=== PATIENT | male | born 1985 | race Caucasian/White ===

== ENCOUNTER 2018-12-30 14:03 | Emergency (ER) | payer OTHER ==
[2018-12-30 14:16] VITALS: BP 142/85
--- NOTE | 2018-12-30 14:34 | ER Document Report ---
ED Medical Screen (RME) - General Chief Complaint: Urinary Problem Stated Complaint: URINARY PAIN Time Seen by Provider: 12/30/18 14:32 Mode of Arrival: Ambulatory Information source: Patient Notes: 33-year-old male presented to ED for complaint of "brown urine. He states he has been having working out very heavy for the last 2 days. He states he thought he was drinking enough fluid but he is urinated twice today and both times it was brown. He states he is not having any muscle cramping at this time. He states he does have a history of anxiety depression PTSD and bipolar. He denies smoking drinking or using any kind of drugs. I have ordered urine blood work and fluids and he will be seen by another provider. I have greeted and performed a rapid initial assessment of this patient. A comprehensive ED assessment and evaluation of the patient, analysis of test results and completion of medical decision making process will be conducted by an additional ED providers. TRAVEL OUTSIDE OF THE [place] IN LAST 30 DAYS: No - Related Data Allergies/Adverse Reactions: No Known Allergies Allergy (Unverified 12/30/18 14:05) Physical Exam - Vital signs Vitals: Temp Pulse Resp BP Pulse Ox 98.8 F 80 14 142/85 H 97 12/30/18 14:15 12/30/18 14:15 12/30/18 14:15 12/30/18 14:15 12/30/18 14:15 Course - Vital Signs Vital signs: Temp Pulse Resp BP Pulse Ox 98.8 F 80 14 142/85 H 97 12/30/18 14:15 12/30/18 14:15 12/30/18 14:15 12/30/18 14:15 12/30/18 14:15
[2018-12-30 14:57] LABS: APPEARANCE,URINE SLIGHTLY-CLOUDY; BILIRUBIN,URINE NEGATIVE (NEGATIVE); GLUCOSE, URINE NEGATIVE (NEGATIVE); KETONES,URINE NEGATIVE (NEGATIVE); LEUKOCYTE ESTERASE,URINE NEGATIVE (NEGATIVE); NITRITE,URINE NEGATIVE (NEGATIVE); PROTEIN,URINE 100 mg/dL (NEGATIVE); URINE SPECIFIC GRAVITY 1.008; UROBILINOGEN,URINE NEGATIVE mg/dL (<2.0)
[2018-12-30 14:59] LABS: COLOR,URINE AMBER
[2018-12-30] MEDS: RINGERS SOLUTION,LACTATED 1,000 ML IV PRN ×2 (15:00→16:24)
--- NOTE | 2018-12-30 15:05 | ER Document Report ---
ED General - General Chief Complaint: Urinary Problem Stated Complaint: URINARY PAIN Time Seen by Provider: 12/30/18 14:32 Mode of Arrival: Ambulatory Notes: 33-year-old male presents the emergency department with chief complaint of brown urine this morning. Patient states that he recently started working out again a nd has had significant muscle pain over the last several days. 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 Patient denies any flank pain, denies any muscle cramping, states that his urine is starting to become "a little more transparent". When I asked him dark brown urine was he said it was the consistency of tea. Patient denies any fevers, chills or malaise, nausea or vomiting, abdominal pain, dysuria, and anuria, no other problems. TRAVEL OUTSIDE OF THE [place] IN LAST 30 DAYS: No - Related Data Allergies/Adverse Reactions: No Known Allergies Allergy (Unverified 12/30/18 14:05) Past Medical History - General Information source: Patient - Social History Smoking Status: Unknown if Ever Smoked Family History: None Review of Systems - Review of Systems Constitutional: See HPI EENT: No symptoms reported Cardiovascular: See HPI Respiratory: See HPI Gastrointestinal: See HPI Genitourinary: See HPI Male Genitourinary: No symptoms reported Musculoskeletal: See HPI Skin: No symptoms reported Hematologic/Lymphatic: No symptoms reported Neurological/Psychological: No symptoms reported Physical Exam - Vital signs Vitals: Temp Pulse Resp BP Pulse Ox 98.8 F 80 14 142/85 H 97 12/30/18 14:15 12/30/18 14:15 12/30/18 14:15 12/30/18 14:15 12/30/18 14:15 - Notes Notes: PHYSICAL EXAMINATION: Reviewed vital signs and charting by RN GENERAL: Alert, interacts well. No acute distress. HEAD: Normocephalic, atraumatic. EYES: Pupils equal and round. Extraocular movements intact. ENT: Oral mucosa moist, tongue midline. NECK: Full range of motion. Trachea midline. LUNGS: Clear to auscultation bilaterally, no wheezes, rales, or rhonchi. No respiratory distress. HEART: Regular rate and rhythm. No murmur ABDOMEN: soft, non-tender. No distention. Bowel sounds present EXTREMITIES: Moves all 4 extremities spontaneously. No edema, No cyanosis. PSYCH: Normal affect, normal mood. SKIN: Warm, dry, normal turgor. No rashes or lesions noted. Course - Re-evaluation Re-evalutation: 12/30/18 15:16 Overall well-appearing, nursing notes reviewed, vital signs within normal limits. All labs work-up ordered in triage and pending. 12/30/18 16:56 Lab work resulted and patient's CK 46,098, no evidence of ALEXANDRE at this time. Elidia rubio has received Ringer's lactate 2 L. I called the hospitalist, Wilmer Rojas, DANNY, who accepted patient for full admission. - Vital Signs Vital signs: Temp Pulse Resp BP Pulse Ox 98.8 F 80 14 142/85 H 97 12/30/18 14:15 12/30/18 14:15 12/30/18 14:15 12/30/18 14:15 12/30/18 14:15 - Laboratory Result Diagrams: 12/30/18 14:55 12/30/18 14:55 Laboratory results interpreted by me: 12/30/18 12/30/18 12/30/18 14:40 14:55 14:55 WBC 10.9 H MCV 99 H MCH 35.3 H Sodium 136.8 L AST 809 H Creatine Kinase 36355 H Urine Protein 100 H Urine Blood LARGE H Discharge - Discharge Clinical Impression: Rhabdomyolysis Qualifiers: Rhabdomyolysis type: non-traumatic Qualified Code(s): M62.82 - Rhabdomyolysis Condition: Stable Disposition: AGAINST MEDICAL ADVICE Admitting Provider: Dorian (Hospitalist) Unit Admitted: Medical Floor
[2018-12-30 15:12] LABS: ABSOLUTE BASOPHILS # (AUTO) 0.1 10^3/uL (0.0-0.2); ABSOLUTE LYMPHOCYTES (AUTO) 1.8 10^3/uL (0.5-4.7); BASOPHILS % (AUTO) 0.6 % (0-2); EOSINOPHILS % (AUTO) 0.3 % (0-6); HEMATOCRIT 44.2 % (37.9-51.0); HEMOGLOBIN 15.8 g/dL (13.5-17.0); LYMPHOCYTES % (AUTO) 16.8 % (13-45); MEAN CORPUSCULAR HEMOGLOBIN 35.3 pg (27.0-33.4); MEAN CORPUSCULAR HGB CONC 35.7 g/dL (32.0-36.0); MEAN CORPUSCULAR VOLUME 99 fl (80-97); MONOCYTES % (AUTO) 9.3 % (3-13); PLATELET COUNT 204 10^3/uL (150-450); RED BLOOD COUNT 4.46 10^6/uL (4.35-5.55); RED CELL DISTRIBUTION WIDTH 12.8 % (11.5-14.0); TOTAL CELLS COUNTED % (AUTO) 100 %; WHITE BLOOD COUNT 10.9 10^3/uL (4.0-10.5)
[2018-12-30 15:34] LABS: ALBUMIN 4.7 g/dL (3.5-5.0); ALKALINE PHOSPHATASE 68 U/L (38-126); ANION GAP 8 (5-19); BILIRUBIN,DIRECT 0.3 mg/dL (0.0-0.4); BILIRUBIN,TOTAL 0.4 mg/dL (0.2-1.3); BLOOD UREA NITROGEN 11 mg/dL (7-20); CARBON DIOXIDE 30 mmol/L (22-30); CHLORIDE 99 mmol/L (98-107); GLUCOSE 84 mg/dL (75-110); POTASSIUM 4.4 mmol/L (3.6-5.0); TOTAL PROTEIN 7.4 g/dL (6.3-8.2)
[2018-12-30 15:52] LABS: ASPARTATE AMINO TRANSFERASE 809 U/L (17-59)
[2018-12-30 16:12] LABS: CREATINE KINASE 46098 U/L (55-170)
[2018-12-30] MEDS ORDERED: OXYCODONE-ACETAMINOPHEN 5-325 MG TABLET PO PRN (17:02)
[2018-12-30] MEDS ORDERED: NORMAL SALINE 1000 ML 1,000 ML IV PRN (17:02)
--- NOTE | 2018-12-30 17:10 | Progress Note Acknowledgement ---
Progress Note Acknowledgement Progess Note Acknowledgement: I, the undersigned member of the medical staff with appropriate privileges and with supervisory authority over [Simone Rojas], a dependent practice allied health professional, acknowledge that I have reviewed the progress notes entered on this patient, and in my professional judgment believe that the assessment made and/or any care evidenced was appropriate
--- NOTE | 2018-12-30 17:18 | PDOC H&P ---
History of Present Illness Admission Date/PCP: 12/30/2018 No primary care Patient complains of: Muscle aches History of Present Illness: BROOKS ROMERO is a 33 year old male who presents after "excessive exercise" with rhabdomyolysis. Patient has a elevated CK above 40,000 at this time. Elidia rubio does not have acute renal failure although he does have elevated LFTs. Patient had no treatment prior to arrival no true aggravating factors. Past Medical History Cardiac Medical History: Reports: Hypertension Psychiatric Medical History: Reports: Depression Past Surgical History Past Surgical History: Reports: None Social History Information Source: Patient Lives with: Family Smoking Status: Unknown if Ever Smoked Frequency of Alcohol Use: None Hx Recreational Drug Use: No Drugs: None Hx Prescription Drug Abuse: No - Advance Directive Resuscitation Status: Full Code Family History Family History: Hypertension Parental Family History Reviewed: Yes Children Family History Reviewed: Yes Sibling(s) Family History Reviewed.: Yes Medication/Allergy Allergies/Adverse Reactions: No Known Allergies Allergy (Unverified 12/30/18 14:05) Review of Systems Constitutional: PRESENT: other - Muscle aches. ABSENT: chills, fever(s), headache(s), weight gain, weight loss Eyes: ABSENT: visual disturbances Ears: ABSENT: hearing changes Cardiovascular: ABSENT: chest pain, dyspnea on exertion, edema, orthropnea, palpitations Respiratory: ABSENT: cough, hemoptysis Gastrointestinal: ABSENT: abdominal pain, constipation, diarrhea, hematemesis, hematochezia, nausea, vomiting Genitourinary: ABSENT: dysuria, hematuria Musculoskeletal: ABSENT: joint swelling Integumentary: ABSENT: rash, wounds Neurological: ABSENT: abnormal gait, abnormal speech, confusion, dizziness, focal weakness, syncope Psychiatric: ABSENT: anxiety, depression, homidical ideation, suicidal ideation Endocrine: ABSENT: cold intolerance, heat intolerance, polydipsia, polyuria Hematologic/Lymphatic: ABSENT: easy bleeding, easy bruising Physical Exam Vital Signs: Temp Pulse Resp BP Pulse Ox 98.8 F 80 14 142/85 H 97 12/30/18 14:15 12/30/18 14:15 12/30/18 14:15 12/30/18 14:15 12/30/18 14:15 Intake & Output 12/29/18 12/30/18 12/31/18 06:59 06:59 06:59 Intake Total 1000 Balance 1000 Weight 80.5 kg General appearance: PRESENT: no acute distress, well-developed, well-nourished Head exam: PRESENT: atraumatic, normocephalic Eye exam: PRESENT: conjunctiva pink, EOMI, PERRLA. ABSENT: scleral icterus Ear exam: PRESENT: normal external ear exam Mouth exam: PRESENT: moist, tongue midline Neck exam: ABSENT: carotid bruit, JVD, lymphadenopathy, thyromegaly Respiratory exam: PRESENT: clear to auscultation juanita. ABSENT: rales, rhonchi, wheezes Cardiovascular exam: PRESENT: RRR. ABSENT: diastolic murmur, rubs, systolic murmur Pulses: PRESENT: normal dorsalis pedis pul Vascular exam: PRESENT: normal capillary refill GI/Abdominal exam: PRESENT: normal bowel sounds, soft. ABSENT: distended, guarding, mass, organolmegaly, rebound, tenderness Rectal exam: PRESENT: deferred Extremities exam: PRESENT: full ROM. ABSENT: calf tenderness, clubbing, pedal edema Neurological exam: PRESENT: alert, awake, oriented to person, oriented to place, oriented to time, oriented to situation, CN II-XII grossly intact. ABSENT: motor sensory deficit Psychiatric exam: PRESENT: appropriate affect, normal mood. ABSENT: homicidal ideation, suicidal ideation Skin exam: PRESENT: dry, intact, warm. ABSENT: cyanosis, rash Results Laboratory Results: 12/30/18 14:55 12/30/18 14:55 12/30/18 12/30/18 12/30/18 14:40 14:55 14:55 WBC 10.9 H RBC 4.46 Hgb 15.8 Hct 44.2 MCV 99 H MCH 35.3 H MCHC 35.7 RDW 12.8 Plt Count 204 Seg Neutrophils % 73.0 Sodium 136.8 L Potassium 4.4 Chloride 99 Carbon Dioxide 30 Anion Gap 8 BUN 11 Creatinine 0.98 Est GFR ( Amer) > 60 Glucose 84 Calcium 10.0 Total Bilirubin 0.4 AST 809 H Alkaline Phosphatase 68 Total Protein 7.4 Albumin 4.7 Lipase 91.6 Urine Color MONICA Urine Appearance SLIGHTLY-CLOUDY Urine pH 6.0 Ur Specific [place] 1.008 Urine Protein 100 H Urine Glucose (UA) NEGATIVE Urine Ketones NEGATIVE Urine Blood LARGE H Urine Nitrite NEGATIVE Ur Leukocyte Esterase NEGATIVE Urine WBC (Auto) 3 Urine RBC (Auto) 1 12/30/18 14:55 Creatine Kinase 40261 H Assessment and Plan - Diagnosis (1) Rhabdomyolysis Qualifiers: Rhabdomyolysis type: non-traumatic Qualified Code(s): M62.82 - Rhabdomyolys is Is this a current diagnosis for this admission?: Yes Plan: 12/30/2018-CK of elevated above 40,000. Creatinine normal. Normal saline 30 mL an hour overnight. Repeat labs in the a.m. (2) Elevated LFTs Is this a current diagnosis for this admission?: Yes Plan: 12/30/2018-hepatitis panel. Repeat LFTs in the a.m. - Time Time Spent with patient: 35 or more minutes
--- NOTE | 2018-12-30 17:20 | Left Against Medical Advice ---
Against Medical Advice Admission Date/Time: 12/30/[id number] Primary Care Provider: Date of Patient Emigration: 12/30/18 - Diagnosis: (1) Rhabdomyolysis Is this a current diagnosis for this admission?: Yes (2) Elevated LFTs Is this a current diagnosis for this admission?: Yes - Summary: Summary: Please see Admission and Progress Notes as well. BROOKS ROMERO is a 33 M, who LEFT AGAINST MEDICAL ADVICE. The Patient was admitted on 12/30/2018 at 1700. Decided at 1720 he wanted to go AGAINST MEDICAL ADVICE. Educated patient that going AGAINST MEDICAL ADVICE could lead up to and including . Patient verbalized understanding but stated he want to go home nonetheless.
== END 2018-12-30 17:22 | disposition left against medical advice (07) ==
LOC: ER 14:03
DX: M62.82 Rhabdomyolysis (principal); R39.89 Other symptoms and signs involving the genitourinary system; Z53.20 Procedure and treatment not carried out because of patient's decision for unspecified reasons
CPT/HCPCS: 99283; 96360; 96361; 36415; 87086; 82550; 83690; 85025; 80053; 81001; J7120

== ENCOUNTER 2019-06-24 12:02 | Day surgery (SDC) | payer OTHER ==
[2019-06-17 10:22] LABS: ANION GAP 7 (5-19); BLOOD UREA NITROGEN 14 mg/dL (7-20); CALCIUM 10.1 mg/dL (8.4-10.2); CARBON DIOXIDE 32 mmol/L (22-30); CHLORIDE 99 mmol/L (98-107); GLUCOSE 90 mg/dL (75-110); POTASSIUM 5.1 mmol/L (3.6-5.0)
[~2019-06-24 12:02] MED LIST: CEFAZOLIN 1 GM/D5W RTU 1 GM/50 ML RTUPB IV PRN; LACTATED RINGERS 1000 ML IV PRN; LIDOCAINE 0.5% INJ-PF (5 MG/ML) 50 ML SDV SUBCUT PRN
[2019-06-24] MEDS ORDERED: LIDOCAINE 2% INJ-PF (20 MG/ML) 10 ML AMPUL ONE (12:05)
[2019-06-24] MEDS ORDERED: MIDAZOLAM 2 MG/2 ML INJ ONE (12:05)
[2019-06-24] MEDS ORDERED: FENTANYL CITRATE INJ/PF 100 MCG/2 ML AMPUL ONE (12:05)
[2019-06-24] MEDS ORDERED: DEXAMETHASONE SOD PHOSPHATE INJ 4 MG/1 ML VIAL ONE (12:06)
[2019-06-24] MEDS ORDERED: ONDANSETRON HCL INJ/PF 4 MG/2 ML SDV ONE (12:06)
[2019-06-24] MEDS ORDERED: PROPOFOL INJ 200 MG/20 ML VIAL IV ONE (12:06)
[2019-06-24] MEDS ORDERED: CEFAZOLIN 1 GM/D5W RTU 1 GM/50 ML RTUPB IV ONE (12:51)
[2019-06-24] MEDS ORDERED: BUPIVACAINE INJ/PF LIPOSOME/PF 266 MG/20 ML SDV ONE (13:06)
[2019-06-24] MEDS ORDERED: MORPHINE SULFATE 10 MG/ML INJ IV PRN (13:08)
[2019-06-24] MEDS ORDERED: DIPHENHYDRAMINE HCL 50 MG/ML VIAL IV PRN (13:08)
[2019-06-24] MEDS ORDERED: MEPERIDINE HCL/PF INJ 25 MG/1 ML DISP.SYRIN IV PRN (13:08)
[2019-06-24] MEDS ORDERED: FENTANYL CITRATE INJ/PF 100 MCG/2 ML AMPUL IV PRN ×3 (13:08)
[2019-06-24] MEDS ORDERED: PROMETHAZINE HCL INJ 25 MG/1 ML VIAL IV PRN ×2 (13:08)
[2019-06-24] MEDS ORDERED: OXYCODONE-ACETAMINOPHEN 5-325 MG TABLET PO PRN ×2 (13:08)
--- NOTE | 2019-06-24 13:59 | Operative Report ---
Nonrecallable Operative Report DATE OF SURGERY: 06/24/19 PREOPERATIVE DIAGNOSIS: Anal fissure POSTOPERATIVE DIAGNOSIS: Anal fissure OPERATION: Exam under anesthesia and lateral internal sphincterotomy SURGEON: DUYEN MACE ANESTHESIA: GA TISSUE REMOVED OR ALTERED: None COMPLICATIONS: None ESTIMATED BLOOD LOSS: 10 cc INTRAOPERATIVE FINDINGS: Posterior anal fissure PROCEDURE: Procedure note patient was brought to the operating when awake alert in stable condition placed in the operative table supine position induced under anesthesia intubated. He was then placed up in a high lithotomy position. After appropriate timeout site verification the anus was prepped and draped in usual sterile fashion. Examination with the anoscope revealed a posterior anal fissure with the external sphincter muscles visible at the base of the fissure. 360 degree circumferential examination of the rectum revealed no other abnormalities there was no significant hemorrhoidal's that were identified. Therefore because of the persistent anal fissure we have elected to perform a lateral internal sphincterotomy. Using the Bovie cautery at the 9 o'clock position the mucosa was incised longitudinally for approximately 2 cm from the sphincters proximally. The mucosa was then lifted up gently with the Sita clamps. 2 bundles muscles were identified the internal and external circular muscles. The internal muscles were then incised with a 11 blade scalpel. Once this incision completed hemostasis was obtained with Bovie cautery. The mucosa was then reapproximated with a running 3-0 Vicryl suture. The patient was then given submucosal anesthesia using Exparel approximately 20 cc were infiltrated in all 4 quadrants of the rectum. This completed the procedure. Estimated blood loss was less than 10 cc sponge needle counts were correct x2 the patient was awakened in the operative extubated transferred recovery in stable condition no complications
--- NOTE | 2019-06-24 14:06 | Discharge Summary ---
Discharge Summary (SDC) - Discharge Final Diagnosis: Posterior anal fissure Date of Surgery: 06/24/19 Discharge Date: 06/24/19 Condition: Good Prescriptions: Hydrocodone/Acetaminophen [Superior 10-325 mg Tablet] 1 tab PO Q6HP PRN #20 tablet PRN Reason: Referrals: [facility] [Primary [facility]] - Discharge Activity: Activity As Tolerated, No Lifting Over 10 Pounds Report the Following to Your Physician Immediately: Shortness of Breath, Fever over 101 Degrees, Unusual Bleeding
[2019-06-24 17:09] VITALS: BP 127/78
== END 2019-06-24 15:45 | disposition home or self-care (01) ==
LOC: OROUT 12:02
PROVIDERS: ATTEND Surgery
DX: K60.2 Anal fissure, unspecified (principal); Z79.899 Other long term (current) drug therapy; Z87.891 Personal history of nicotine dependence; G47.33 Obstructive sleep apnea (adult) (pediatric); I10 Essential (primary) hypertension
CPT/HCPCS: 36415 ×2; 84132; 80048; 00902; 46080; J2250; J0690; J1100; J3010; J2405; J2704; J3490; C9290; 902

== ENCOUNTER 2020-02-07 10:10 | Emergency (ER) | payer OTHER ==
[2020-02-07] MEDS ORDERED: DEXAMETHASONE SOD PHOS INJ 10 MG/1 ML VIAL IM ONE (10:50)
[2020-02-07] MEDS ORDERED: KETOROLAC TROMETHAMINE 60 MG/2 ML SDV IM ONE ×2 (10:50→21:24)
--- NOTE | 2020-02-07 10:52 | ER Document Report ---
ED Medical Screen (RME) - General Chief Complaint: Back Pain Stated Complaint: BACK PAIN Time Seen by Provider: 02/07/20 10:40 Primary Care Provider: HOLLY,AC [Primary Care Provider] - Follow up as needed Mode of Arrival: Wheelchair Information source: Patient Notes: Patient is a 34-year-old male with history of depression and anxiety presenting to the emergency department chief complaint of low back pain and suicidal ideations. Patient reports he has severe pain in his low back that is running down into his right buttock and leg. He states the pain has been ongoing for last 6 months significantly worsening over the last week. He states the pain is so bad he has had thoughts of suicide. He does have a history of depression. He states he has taken his medication for this but continues to have thoughts of suicide. He denies any saddle anesthesia, denies any loss of control of bowel or bladder, denies any urinary retention. He denies IV drug use. Patient appears to be in moderate distress due to the pain. I have greeted and performed a rapid initial assessment of this patient. A comprehensive ED assessment and evaluation of the patient, analysis of test results and completion of the medical decision making process will be conducted by additional ED providers. I have specifically instructed the patient or family members with the patient to immediately return to any nursing staff should anything change in the patient's condition or with their chief complaint. TRAVEL OUTSIDE OF THE [place] IN LAST 30 DAYS: No - Related Data Allergies/Adverse Reactions: No Known Allergies Allergy (Verified 02/07/20 10:43) Past Medical History - Past Medical History Cardiac Medical History: Reports: Hx Hypertension Denies: Hx Coronary Artery Disease, Hx Heart Attack Pulmonary Medical History: Reports: Hx Asthma Denies: Hx Bronchitis, Hx COPD, Hx Pneumonia Neurological Medical History: Denies: Hx Cerebrovascular Accident, Hx Seizures Musculoskeltal Medical History: Denies Hx Arthritis Psychiatric Medical History: Reports: Hx Depression - Immunizations Hx Diphtheria, Pertussis, Tetanus Vaccination: Yes Physical Exam - Vital signs Vitals: Temp Pulse Resp BP Pulse Ox 98.8 F 108 H 18 151/109 H 98 02/07/20 10:31 02/07/20 10:31 02/07/20 10:31 02/07/20 10:31 02/07/20 10:31 Course - Vital Signs Vital signs: Temp Pulse Resp BP Pulse Ox 98.8 F 108 H 18 151/109 H 98 02/07/20 10:31 02/07/20 10:31 02/07/20 10:31 02/07/20 10:31 02/07/20 10:31 Doctor's Discharge - Discharge Referrals: [facility] [Primary Care [facility]] - Follow up as needed
[2020-02-07 12:05] LABS: AMORPHOUS SEDIMENT,URINE 1+ /HPF; APPEARANCE,URINE CLOUDY; BILIRUBIN,URINE NEGATIVE (NEGATIVE); COLOR,URINE AMBER; GLUCOSE, URINE NEGATIVE (NEGATIVE); KETONES,URINE TRACE mg/dL (NEGATIVE); LEUKOCYTE ESTERASE,URINE NEGATIVE (NEGATIVE); NITRITE,URINE NEGATIVE (NEGATIVE); PROTEIN,URINE 30 mg/dL (NEGATIVE); URINE SPECIFIC GRAVITY 1.013
[2020-02-07 12:07] LABS: ABSOLUTE LYMPHOCYTES (AUTO) 1.4 10^3/uL (0.5-4.7); ABSOLUTE MONOCYTES (AUTO) 0.7 10^3/uL (0.1-1.4); ABSOLUTE NEUT (AUTO) 4.1 10^3/uL (1.7-8.2); BASOPHILS % (AUTO) 0.4 % (0-2); EOSINOPHILS % (AUTO) 0.4 % (0-6); HEMATOCRIT 46.9 % (37.9-51.0); HEMOGLOBIN 16.7 g/dL (13.5-17.0); LYMPHOCYTES % (AUTO) 22.5 % (13-45); MEAN CORPUSCULAR HEMOGLOBIN 34.3 pg (27.0-33.4); MEAN CORPUSCULAR HGB CONC 35.7 g/dL (32.0-36.0); MEAN CORPUSCULAR VOLUME 96 fl (80-97); MONOCYTES % (AUTO) 11.5 % (3-13); PLATELET COUNT 123 10^3/uL (150-450); RED BLOOD COUNT 4.88 10^6/uL (4.35-5.55); RED CELL DISTRIBUTION WIDTH 13.6 % (11.5-14.0); SEGMENTED NEUTROPHILS % (AUTO) 65.2 % (42-78); TOTAL CELLS COUNTED % (AUTO) 100 %; WHITE BLOOD COUNT 6.3 10^3/uL (4.0-10.5)
[2020-02-07 12:23] LABS: URINE AMPHETAMINES SCREEN NEGATIVE; URINE BARBITURATES SCREEN NEGATIVE; URINE BENZODIAZEPINES SCREEN NEGATIVE; URINE COCAINE SCREEN NEGATIVE; URINE METHADONE SCREEN NEGATIVE; URINE PHENCYCLIDINE SCREEN NEGATIVE
[2020-02-07 12:24] LABS: URINE MARIJUANA (THC) SCREEN UNCONFIRMED POSITIVE
[2020-02-07 12:29] LABS: ANION GAP 13 (5-19); BLOOD UREA NITROGEN 9 mg/dL (7-20); CALCIUM 10.2 mg/dL (8.4-10.2); CARBON DIOXIDE 29 mmol/L (22-30); CHLORIDE 92 mmol/L (98-107); GLUCOSE 97 mg/dL (75-110); POTASSIUM 3.7 mmol/L (3.6-5.0)
[2020-02-07 12:33] LABS: ALCOHOL < 10 mg/dL (NONE DETECTED)
--- NOTE | 2020-02-07 12:38 | PSYCHOLOGICAL NOTE ---
Psych Note - Psych Note Date seen by psych provider: 02/07/20 Time seen by psych provider: 11:35 Psych Note: Reason for Consult: Suicidal ideation Patient arrived to [facility] ED via POV for back pain which has caused suicidal ideation. Patient states he has had passive suicidal ideation in the past but has never had a plan or engaged in an attempt. Patient did engage in maladaptive coping skill of cutting when in high school, but has not cut since. Patient reports his pain had a sudden onset 6 months ago and has progressively gotten worse. He denies any specific injury or trauma. Patient states that over the weekend has gotten so bad that "I started thinking about killing myself.... My plan was to cut my wrist because it is quick and painless." Patient receives outpatient mental health services through the [facility] and is on medication including Prozac and Remeron. He reports he is never been inpatient psychiatric treatment and has not been to therapy in approximately 2 months. Patient is alert and orientated to person, place, time and circumstance. Mood is dysphoric with blunted affect. Patient endorses suicidal ideation with a plan to cut his wrist. Patient denies homicidal ideation. Delusions are absent behaviors congruent with an intact reality based presentation i.e. organized and linear thought process. Eye contact is well maintained. Conversational speech is within normal rate, tone and prosody. Intellectual abilities appear to be within average range. Attention and concentration are currently good. Insight, judgment, impulse control are fair. Impression\\plan: Patient is recommended for 24-hour petition for evaluation. Patient identifies significant pain was sudden onset approximately 6 months ago. Pain has reportedly increased to the point where the patient is struggling with suicidal ideation. Patient has never attempted suicide before. Medication recommendations have been provided. Evaluation is ongoing. Dr. Knight was consulted in the care management of this patient; tending physicians in agreement with recommendations and disposition.
--- NOTE | 2020-02-07 12:38 | RADIOLOGY REPORT (SQ) ---
EXAM DESCRIPTION: CT LUMBAR SPINE WITHOUT IMAGES COMPLETED DATE/TIME: 02/07/2020 12:25 pm REASON FOR STUDY: severe low back pain COMPARISON: None. TECHNIQUE: Axial images acquired through the lumbar spine without intravenous contrast. Images revi ewed with lung, soft tissue and bone windows. Reconstructed coronal and sagittal MPR images reviewed . All images stored on PACS. All CT scanners at this facility use dose modulation, iterative reconstruction, and/or weight based d osing when appropriate to reduce radiation dose to as low as reasonably achievable (ALARA). [facility]: Dose Right [facility]: CareDose [facility]: Dose Right [facility]: Teradose 4D [facility]: Neventum RADIATION DOSE: mGy. LIMITATIONS: None. FINDINGS: SEGMENTATION: Normal. No transitional anatomy. ALIGNMENT: Normal. VERTEBRAL BODIES: No fractures. No dislocation. No acute findings. DISCS: Left paracentral disc herniation L5-S1. Mild spinal stenosis. Study limited by lack of intra thecal contrast. PEDICLES, TRANSVERSE PROCESSES: No fractures. No dislocation. No acute findings. FACETS, POSTERIOR ELEMENTS: Mild facet arthropathy L5-S1. HARDWARE: None in the spine. VISUALIZED RIBS: No fractures. SOFT TISSUES: No significant or acute finding in adjacent soft tissues. OTHER: No other significant finding. IMPRESSION: Herniated disc L5-S1. TECHNICAL DOCUMENTATION: JOB ID: [id number] Quality ID # [id number]: Final reports with documentation of one or more dose reduction techniques (e.g., Au tomated exposure control, adjustment of the mA and/or kV according to patient size, use of iterative reconstruction technique) 2010 [employer]- All Rights Reserved Reading location - IP/workstation name: [email or web address]
[2020-02-07] MEDS ORDERED: GABAPENTIN 300 MG CAPSULE PO ONE ×2 (14:00→22:34)
--- NOTE | 2020-02-07 14:00 | ER Document Report ---
ED Psych Disorder / Suicide - General Chief Complaint: Suicidal Ideation Stated Complaint: BACK PAIN Time Seen by Provider: 02/07/20 10:40 [facility] [[facility] - Follow up as needed Mode of Arrival: Wheelchair TRAVEL OUTSIDE OF THE [place] IN LAST 30 DAYS: No - HPI Notes: 34-year-old male to the emergency department with complaints of back pain that radiates down his right leg for the past 6 months but acutely worse in the past week and suicidal ideations with a plan. He states that the [facility] has been taking care of him with his back. They gave him a shot of Toradol last week which did help the pain. He then discharged home with Lidoderm patches as well as Flexeril. He states that has not been controlling his pain. He states his pain is been so significant that he has been drinking to help him fall asleep. He states the pain has been so bad and his mobility has not been very good so he has been starting to feel depressed and like he wants to kill himself. He has a plan to slit his wrists. He has a history of self-mutilation as a younger person but has never attempted to commit suicide. He denies any HI or hallucinations. He denies any fevers or chills. He does not use IV drugs. He denies any bladder or bowel incontinence or saddle paresthesias. - Related Data Allergies/Adverse Reactions: No Known Allergies Allergy (Verified 02/07/20 10:43) Home Medications: prozac. lisinopril. mertrazipine. truvada. protonix Past Medical History - General Information source: Patient - Social History Smoking Status: Former Smoker Chew tobacco use (# tins/day): No Frequency of alcohol use: Heavy Drug Abuse: None Family History: None Patient has homicidal ideation: No - Past Medical History Cardiac Medical History: Reports: Hx Hypertension Denies: Hx Coronary Artery Disease, Hx Heart Attack Pulmonary Medical History: Reports: Hx Asthma Denies: Hx Bronchitis, Hx COPD, Hx Pneumonia Neurological Medical History: Denies: Hx Cerebrovascular Accident, Hx Seizures Musculoskeletal Medical History: Denies Hx Arthritis Psychiatric Medical History: Reports: Hx Depression - Immunizations Hx Diphtheria, Pertussis, Tetanus Vaccination: Yes Review of Systems - Review of Systems Constitutional: denies: Chills, Fever EENT: No symptoms reported Cardiovascular: denies: Chest pain, Palpitations, Dizziness, Lightheaded Respiratory: denies: Cough, Short of breath Gastrointestinal: denies: Abdominal pain, Diarrhea, Nausea, Vomiting Musculoskeletal: See HPI - See HPI, Back pain Skin: No symptoms reported Neurological/Psychological: Depression, Suicidal ideation -: Yes All other systems reviewed and negative Physical Exam - Vital signs Vitals: Temp Pulse Resp BP Pulse Ox 98.8 F 108 H 18 151/109 H 98 02/07/20 10:31 02/07/20 10:31 02/07/20 10:31 02/07/20 10:31 02/07/20 10:31 Interpretation: Normal - General General appearance: Appears well, Alert In distress: Moderate Notes: Moderate pain distress also emotionally labile and tearful - HEENT Head: Normocephalic, Atraumatic Eyes: Normal Pupils: PERRL - Respiratory Respiratory status: No respiratory distress Chest status: Nontender Breath sounds: Normal. No: Rales, Rhonchi, Wheezing Chest palpation: Normal - Cardiovascular Rhythm: Regular Heart sounds: Normal auscultation Murmur: No - Abdominal Inspection: Normal Distension: No distension Bowel sounds: Normal Tenderness: Nontender. No: Tender, McBurney's point, Berman's sign, Guarding, Rebound Organomegaly: No organomegaly - Back Notes: There is mild tenderness to palpation to the lower lumbar spine and over into the right buttocks. Patient has a positive right straight leg raise. Negative left straight leg raise. No tenderness to palpation over the midline cervical and thoracic spine - Neurological Neuro grossly intact: Yes Cognition: Normal Orientation: AAOx4 [place] Coma Scale Eye Opening: Spontaneous Svetlana Coma Scale Verbal: Oriented [place] Coma Scale Motor: Obeys Commands [place] Coma Scale Total: 15 Speech: Normal Cranial nerves: Normal Cerebellar coordination: Normal. 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 No: Pronator drift Sensory: Normal - Psychological Associated symptoms: Normal affect, Normal mood - Skin Skin Temperature: Warm Skin Moisture: Dry Skin Color: Normal Course - Re-evaluation Re-evalutation: 02/07/20 20:07 Turned patient over to ROYER Cordova. He will monitor the patient overnight. - Vital Signs Vital signs: Temp Pulse Resp BP Pulse Ox 98.8 F 108 H 18 151/109 H 98 02/07/20 10:44 02/07/20 10:31 02/07/20 10:31 02/07/20 10:31 02/07/20 10:31 - Laboratory Result Diagrams: 02/07/20 11:30 02/07/20 11:30 Laboratory results interpreted by me: 02/07/20 02/07/20 02/07/20 11:05 11:30 11:30 MCH 34.3 H Plt Count 123 L Sodium 133.5 L Chloride 92 L Urine Protein 30 H Urine Ketones TRACE H Urine Urobilinogen 4.0 H - Diagnostic Test Radiology reviewed: Image reviewed, Reports reviewed Discharge - Discharge Clinical Impression: Suicidal ideation Disc herniation Qualifiers: Spinal region: lumbosacral Qualified Code(s): M51.27 - Other intervertebral disc displacement, lumbosacral region Condition: Stable Disposition: OTHER [facility]errals: [facility] [[facility] - Follow up as needed
[2020-02-07] MEDS ORDERED: LISINOPRIL 10 MG TABLET PO ONE (20:13)
[2020-02-08] MEDS ORDERED: MAG HYDROX/AL HYDROX/SIMETH SUSP 30 ML UDCUP PO ONE (03:02)
[2020-02-08] MEDS ORDERED: FAMOTIDINE 20 MG TABLET PO ONE (03:02)
[2020-02-08] MEDS: HALOPERIDOL 5 MG TABLET PO ONE ×2 (04:29→04:30)
[2020-02-08] MEDS ORDERED: GABAPENTIN 300 MG CAPSULE PO SCH (10:00)
[2020-02-08 10:51] VITALS: BP 153/99
[2020-02-08] MEDS ORDERED: KETOROLAC TROMETHAMINE 60 MG/2 ML SDV IM ONE (11:05)
--- NOTE | 2020-02-08 13:53 | PSYCHOLOGICAL NOTE ---
Psych Note - Psych Note Date seen by psych provider: 02/08/20 Time seen by psych provider: 11:30 Psych Note: Reason for Consult:Suicidal ideation Consent Permissions:none provided Patient arrived to [facility] ED via Clinical Presentation: Euthymic mood with congruent affect suicidal ideation due to pain; pain now controlled IVC Criteria per [place] GS 122C Dangerous to others Within the relevant past the individual No has inflicted or attempted to inflict or threatened to inflict serious bodily harm on another AND No that there is a reasonable probability that this conduct will be repeated. OR No has acted in such a way as to create a substantial risk of serious bodily harm to another AND No that there is a reasonable probability that this conduct will be repeated. OR No has engaged in extreme destruction of property AND NO that there is a reasonable probability that this conduct will be repeated. Previous episodes of dangerousness to others, when applicable, may be considered when determining reasonable probability of future dangerous conduct. Clear, cogent, and convincing evidence that an individual has committed a homicide in the relevant past is prima facie evidence of dangerousness to others. Dangerous to self Within the relevant past the individual has done any of the following: acted in such a way as to show ALL of the following: No The individual would be unable without care, supervision, and the continued assistance of others not otherwise available, to exercise self- control, judgment, and discretion in the conduct of the individual's daily responsibilities and social relations or to satisfy the individual's need for nourishment, personal or medical care, long term, or self-protection and safety. AND No There is a reasonable probability of the individual suffering serious physical debilitation within the near future unless adequate treatment is given. A showing of behavior that is grossly irrational, of actions that the individual is unable to control, of behavior that is grossly inappropriate to the situation, or of other evidence of severely impaired insight and judgment shall create a prima facie inference that the individual is unable to care for himself or herself. OR YES has attempted suicide or threatened suicide AND No that there is a reasonable probability of suicide unless adequate treatment is given Patient disclosed suicidal ideation in direct connection to his pain. Patient has no history of suicidal ideation or self harm. [facility] Patient's pain has been addressed and the medical team has been able to identify the cause. OR No has mutilated himself or herself or attempted to mutilate himself or herself AND No that there is a reasonable probability of serious self-mutilation unless adequate treatment is given. NOTE: Previous episodes of dangerousness to self, when applicable, may be considered when determining reasonable probability of physical debilitation, suicide, or self-mutilation. Medication recommendations per [facility] contracted psychiatrist are as follows: Impression\plan: Patient is recommended for rescind of 24 hour petition for evaluation and is cleared from acute psychiatric services. Patient came into [facility] ED voluntarily stating suicidal ideation in connection to his pain. Dr. Knight was consulted to care management of this patient; attending phys icians in agreement with recommendations and disposition.
--- NOTE | 2020-02-08 14:06 | ER Document Report ---
Doctor's Note Notes: 02/08/20 14:05 Patient reevaluated at this time. He has been cleared by psych. Medications prescribed for his acute back pain. Patient stable for discharge.
== END 2020-02-08 14:20 | disposition home or self-care (01) ==
LOC: ER 10:10
DX: M51.27 Other intervertebral disc displacement, lumbosacral region (principal); F32.9 Major depressive disorder, single episode, unspecified; R45.851 Suicidal ideations; I10 Essential (primary) hypertension; J45.909 Unspecified asthma, uncomplicated; Z79.899 Other long term (current) drug therapy; Z91.5 Personal history of self-harm; Z87.891 Personal history of nicotine dependence
CPT/HCPCS: 99285; 96372; 36415; 80307 ×2; 85025; 80048; 81001; 72131; J1885 ×2; J1100

== ENCOUNTER 2020-02-20 07:23 | Emergency (ER) | payer OTHER ==
[2020-02-20 07:33] VITALS: BP 152/102
== END 2020-02-20 08:50 | disposition left against medical advice (07) ==
LOC: ER 07:23
DX: Z53.21 Procedure and treatment not carried out due to patient leaving prior to being seen by health care provider (principal)

== ENCOUNTER 2020-02-20 09:36 | Emergency (ER) | payer OTHER ==
[2020-02-20] MEDS ORDERED: KETOROLAC TROMETHAMINE 60 MG/2 ML SDV IM ONE (11:36)
[2020-02-20] MEDS ORDERED: DEXAMETHASONE SOD PHOS INJ 10 MG/1 ML VIAL IM ONE (11:36)
--- NOTE | 2020-02-20 11:38 | ER Document Report ---
HPI - HPI Time Seen by Provider: 02/20/20 11:07 Pain Level: 5 Context: Patient is a 34-year-old male who presents emergency department with a chief complaint of low back pain that starts in his left side and radiates down his left leg. Patient has history of a bulging disc. He is supposed to see a back surgeon soon. Denies any IV drug use or history of IV drug use, loss of bladder or bowel function, history of cancer, or numbness or tingling. Denies any new weakness. She has had Toradol before and states that it works well for him. - ROS Systems Reviewed and Negative: Yes All other systems reviewed and negative - CONSTITUTIONAL Constitutional: DENIES: Fever, Chills - EENT EENT: DENIES: Sore Throat, Ear Pain, Nasal Drainage-Clear - NEURO Neurology: DENIES: Headache, Weakness, Vision blurred - CARDIOVASCULAR Cardiovascular: DENIES: Chest pain - RESPIRATORY Respiratory: DENIES: Trouble Breathing, Coughing - GASTROINTESTINAL Gastrointestinal: DENIES: Abdominal Pain, Nausea, Patient vomiting - REPRODUCTIVE Reproductive: DENIES: : - MUSCULOSKELETAL Musculoskeletal: REPORTS: Back Pain. DENIES: Swelling - DERM Skin Color: Normal Skin Problems: None Past Medical History - General Information source: Patient - Social History Smoking Status: Unknown if Ever Smoked Family History: None Patient has homicidal ideation: No - Past Medical History Cardiac Medical History: Reports: Hx Hypertension Denies: Hx Coronary Artery Disease, Hx Heart Attack Pulmonary Medical History: Reports: Hx Asthma Denies: Hx Bronchitis, Hx COPD, Hx Pneumonia Neurological Medical History: Denies: Hx Cerebrovascular Accident, Hx Seizures Musculoskeletal Medical History: Denies Hx Arthritis Psychiatric Medical History: Reports: Hx Depression - Immunizations Hx Diphtheria, Pertussis, Tetanus Vaccination: Yes Vertical Provider Document - CONSTITUTIONAL Agree With Documented VS: Yes Exam Limitations: No Limitations General Appearance: No Apparent Distress - INFECTION CONTROL TRAVEL OUTSIDE OF THE [place] IN LAST 30 DAYS: No - HEENT HEENT: Atraumatic, Normocephalic, PERRLA - NECK Neck: Normal Inspection - RESPIRATORY Respiratory: Breath Sounds Normal, No Respiratory Distress - CARDIOVASCULAR Cardiovascular: Regular Rate, Regular Rhythm Pulses: Normal: Radial - MUSCULOSKELETAL/EXTREMETIES Musculoskeletal/Extremeties: FROM, Tender - Left low back - NEURO Level of Consciousness: Awake, Alert, Appropriate Motor/Sensory: No Motor Deficit, No Sensory Deficit Deep Tendon Reflexes: 2+ - DERM Integumentary: Warm, Dry, No Rash Course - Re-evaluation Re-evalutation: 02/20/20 11:45 Differential diagnosis for back pain includes muscle spasm, muscle strain, slipped disc cauda equina syndrome, vertebral fracture, vertebral tumor, epidural abscess, pyelonephritis, or AAA. Based on history and exam, the most likely etiology of the patient's back pain is due to his bulging disc. Emergent MRI is not indicated at this time because the patient does not have new weakness, or cauda equina syndrome. Patient does not have bladder or bowel dysfunction. Patient does not have history of IV drug use, therefore, I do not suspect an epidural abscess. Patient does not have recent weight loss or night sweats, and does not have a known history of cancer. Patient will receive a dose of Decadron and Toradol here in the emergency department. We will also send him home with Toradol. He is in agreement with this plan. Advised him to take his Protonix. Follow-up precautions were given. Verbal discharge instructions were given to the patient. They verbalized understanding. They are stable for discharge. - Vital Signs Vital signs: Temp Pulse Resp BP Pulse Ox 97.9 F 121 H 16 158/89 H 97 02/20/20 09:40 02/20/20 09:40 02/20/20 09:40 02/20/20 09:40 02/20/20 09:40 Discharge - Discharge Clinical Impression: Back pain Qualifiers: Back pain location: low back pain Chronicity: acute Back pain laterality: left Sciatica presence: with sciatica Sciatica laterality: sciatica of left side Qualified Code(s): M54.42 - Lumbago with sciatica, left side Condition: Stable Disposition: HOME, SELF-CARE Additional Instructions: You were seen today in the emergency department for back pain. Your back pain is most consistent with sciatic nerve pain. You may take Toradol and acetaminophen 1000 mg every 6 hours as needed for the pain. Do not take ibuprofen with the Toradol. You may also buy [id number] Aspercreme with lidocaine and apply to the area per box instructions. If you develop a fever greater than 100.4 F, lose bowel or bladder function, are unable to walk, or have any symptoms that are worrisome to you, please return to the emergency department. Make sure you take your Protonix when you take your Toradol. Prescriptions: Methocarbamol [Robaxin 750 mg Tablet] 750 mg PO ASDIR PRN #40 tablet PRN Reason: Ketorolac Tromethamine [Toradol 10 mg Tablet] 10 mg PO Q6HP PRN #20 tablet PRN Reason: Forms: Return to Work [facility]errals[facility] [[facility] - Follow up as needed
[2020-02-20 13:03] VITALS: BP 180/110
== END 2020-02-20 13:03 | disposition home or self-care (01) ==
LOC: ER 09:36
DX: M54.42 Lumbago with sciatica, left side (principal); I10 Essential (primary) hypertension
CPT/HCPCS: 99284; 96372; J1885; J1100

== ENCOUNTER 2020-03-01 00:31 | Emergency (ER) | payer OTHER ==
[2020-03-01 00:37] VITALS: BP 151/97
[2020-03-01] MEDS ORDERED: KETOROLAC TROMETHAMINE 60 MG/2 ML SDV IM ONE (01:49)
[2020-03-01] MEDS ORDERED: DEXAMETHASONE SOD PHOS INJ 10 MG/1 ML VIAL IM ONE (01:49)
[2020-03-01] MEDS ORDERED: METHYLPREDNISOLONE INJ 125 MG/2 ML SDV IM ONE (01:54)
--- NOTE | 2020-03-01 01:56 | ER Document Report ---
HPI - HPI Time Seen by Provider: 03/01/20 01:48 Pain Level: 5 Context: Patient is a 34-year-old male presents emergency department with the chief complaint of back pain. Patient has history of bulging disc in the past. He is supposed to see his surgeon on 17 March. Patient denies any history of IV drug use, loss of bladder or bowel function, cancer, numbness or tingling. Denies any new weakness. Patient states that he did not have much relief from the Robaxin. Patient was not able to get Toradol, due to the fact that he recently had a prescription for it. - ROS Systems Reviewed and Negative: Yes All other systems reviewed and negative - CONSTITUTIONAL Constitutional: DENIES: Fever, Chills - EENT EENT: DENIES: Sore Throat - NEURO Neurology: DENIES: Headache, Weakness - GASTROINTESTINAL Gastrointestinal: DENIES: Abdominal Pain, Nausea, Patient vomiting - REPRODUCTIVE Reproductive: DENIES: : - MUSCULOSKELETAL Musculoskeletal: REPORTS: Extremity pain - from low back; down left side, Back Pain - low back - DERM Skin Color: Normal Skin Problems: None Past Medical History - General Information source: Patient - Social History Smoking Status: Never Smoker Family History: None - Past Medical History Cardiac Medical History: Reports: Hx Hypertension Denies: Hx Coronary Artery Disease, Hx Heart Attack Pulmonary Medical History: Reports: Hx Asthma Denies: Hx Bronchitis, Hx COPD, Hx Pneumonia Neurological Medical History: Denies: Hx Cerebrovascular Accident, Hx Seizures Musculoskeletal Medical History: Denies Hx Arthritis Psychiatric Medical History: Reports: Hx Depression - Immunizations Hx Diphtheria, Pertussis, Tetanus Vaccination: Yes Vertical Provider Document - CONSTITUTIONAL Agree With Documented VS: Yes Exam Limitations: No Limitations General Appearance: No Apparent Distress - INFECTION CONTROL TRAVEL OUTSIDE OF THE [place] IN LAST 30 DAYS: No - HEENT HEENT: Atraumatic, Normocephalic, PERRLA - NECK Neck: Normal Inspection - RESPIRATORY Respiratory: Breath Sounds Normal, No Respiratory Distress - CARDIOVASCULAR Cardiovascular: Regular Rate, Regular Rhythm Pulses: Normal: Radial - MUSCULOSKELETAL/EXTREMETIES Musculoskeletal/Extremeties: FROM, Tender - bilateral low back - NEURO Level of Consciousness: Awake, Alert, Appropriate Motor/Sensory: No Motor Deficit, No Sensory Deficit - DERM Integumentary: Warm, Dry, No Rash Course - Re-evaluation Re-evalutation: 03/01/20 01:57 Differential diagnosis for back pain includes muscle spasm, muscle strain, slipped disc cauda equina syndrome, vertebral fracture, vertebral tumor, epidural abscess, pyelonephritis, or AAA. Based on history and exam, the most likely etiology of the patient's back pain is chronic from his bulging disc. Emergent MRI is not indicated at this time because the patient does not have new weakness, or cauda equina syndrome. Patient does not have bladder or bowel dysfunction. Patient does not have history of IV drug use, therefore, I do not suspect an epidural abscess. Patient does not have recent weight loss or night sweats, and does not have a known history of cancer. - Vital Signs Vital signs: Temp Pulse Resp BP Pulse Ox 97.9 F 96 19 151/97 H 97 03/01/20 00:36 03/01/20 00:36 03/01/20 00:36 03/01/20 00:36 03/01/20 00:36 Discharge - Discharge Clinical Impression: Back pain Qualifiers: Back pain location: low back pain Chronicity: chronic Back pain laterality: bilateral Sciatica presence: with sciatica Sciatica laterality: bilateral sciatica Qualified Code(s): M54.42 - Lumbago with sciatica, left side Condition: Stable Disposition: HOME, SELF-CARE Additional Instructions: You were seen today in the emergency department for back pain. Take the prednisone up as prescribed. When you are able to, fill the Toradol. Prescriptions: Prednisone 10 mg PO ASDIR PRN #21 [id number] PRN Reason: Ketorolac Tromethamine [Toradol 10 mg Tablet] 10 mg PO Q6HP PRN #20 tablet PRN Reason: [facility]errals: [facility] [[facility] - Follow up as needed
== END 2020-03-01 02:05 | disposition home or self-care (01) ==
LOC: ER 00:31
DX: G89.29 Other chronic pain (principal); M54.42 Lumbago with sciatica, left side; M54.41 Lumbago with sciatica, right side; I10 Essential (primary) hypertension; J45.909 Unspecified asthma, uncomplicated
CPT/HCPCS: 99284; 96372; J1885; J2930